=== PATIENT | female | born 1975 | race Caucasian/White ===

== ENCOUNTER 2016-05-08 23:41 | Emergency (ER) | payer MEDICAID ==
[~2016-05-08] VITALS: Ht 162.6 cm; Wt 54.4 kg
[~2016-05-08 23:41] MED LIST: ACYC400T PO; AMOX500T2 PO; BUPR-168; CARI350T PO; CARI350T27 PO; CEFP250T2 PO; CLON0.5T60 PO; CLON1TAB PO; CODE-54 PO; ESCI10TA PO; EST30C PV; FLT05NA16 NS; FLUC100T PO; HYDR-34 PO; HYDR50TA76 PO; HYOS0.1217 PO; IBUP800T26 PO; METH4TAB PO; METH500T PO; METH500T7; METH500T7 PO; MIRT15TA3 PO; ONDA-42 SL; ONDA4TAB11 PO; OXYM30SP NS; PANT20TA2 PO; PHEN-639 PO; PRM25T PO; PROM12.59 PO; QUET50TA PO; SULF1TAB35 PO; TRAM-21 PO; TRAM50TA2; TRAM50TA2 PO; ZLP10T PO
[2016-05-08] MEDS ORDERED: BUSP10TA95 (23:57)
[2016-05-08] MEDS ORDERED: TRAZ-28 (23:57)
[2016-05-09] MEDS ORDERED: IBUPROFEN 800 MG (MOTRIN) TAB PO STA (00:21)
[2016-05-09] MEDS ORDERED: HYDROcodone/APAP 7.5 MG/325 MG (LORTAB, LORCET PLUS) TABLET PO STA (00:21)
[2016-05-09] MEDS ORDERED: CYCLOBENZAPRINE 10 MG (FLEXERIL) TAB PO STA (00:21)
--- NOTE | 2016-05-09 00:37 | ED Upper Extremity ---
General Chief Complaint: Trauma-Non Activation Stated Complaint: FELL Nursing Triage Note: patient reports L shoulder/arm and L rib pain after a fall on the of this month, patient reports has been alternating tylenol and ibuprofen without relief. patient reports moving a washing machine today and reagravating injury Nursing Sepsis Screen: No Definite Risk Source: patient Exam Limitations: no limitations History of Present Illness Time seen by provider: 00:10 Initial Comments Here with complaint of left shoulder and left arm pain and left rib pain after a fall on 25 April. She complains of pain mostly between the shoulder blade and the spine on the left side with spasm that radiates up to the neck and around the chest wall. Pain exacerbated tonight by trying to move her washer with her left arm and she felt a pull that made everything worse. She has been taking iron ibuprofen and Tylenol but that hasn't helped. Onset: other (2 weeks ago initially but worse today) Severity: moderate Method of Injury: fell (initial injury) Modifying Factors: Improves With Immobilization, Worse With Movement Allergies and Home Medications Allergies Coded Allergies: morphine (Verified Allergy, Mild, 12/09/14) estradiol (Verified Allergy, Unknown, RASH, 11/02/13) fentanyl (Verified Allergy, Unknown, 12/09/14) lurasidone (Verified Allergy, Unknown, 12/09/14) Uncoded Allergies: VYBRID (Allergy, Mild, 12/09/14) Home Medications Buspirone HCl 10 Mg Tablet #90 (Reported) Trazodone HCl 50 Mg Tablet #30 (Reported) Constitutional: see HPINo chills, No fever Respiratory: no symptoms reported Cardiovascular: no symptoms reported Gastrointestinal: no symptoms reported Musculoskeletal: see HPI back pain joint pain muscle pain muscle stiffness neck pain Skin: no symptoms reported Psychiatric/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: No Symptoms Reported Past Hzjpjox-Ggrrwu-Kvzztc Hx Patient Social History Alcohol Use: Occasionally Uses Recreational Drug Use: No Smoking Status: Never a Smoker Type Used: Cigarettes Recent Foreign Travel: No Contact w/Someone Who Travel: No Recent Infectious Disease Expo: No Immunizations Up To Date Date of Pneumonia Vaccine: Oct 14, 2012 Seasonal Allergies Seasonal Allergies: No Surgeries HX Surgeries: Yes (R KNEE/R WRIST, BREAS AUGMENTATION) Surgeries: Adenoidectomy, Bladder Surgery, Hysterectomy, Tonsillectomy Respiratory Hx Respiratory Disorders: No Cardiovascular Hx Cardiac Disorders: No 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 Hx 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 Genitourinary Hx Genitourinary Disorders: No Gastrointestinal Hx Gastrointestinal Disorders: No Musculoskeletal Hx Musculoskeletal Disorders: No Endocrine Hx Endocrine Disorders: No HEENT HX ENT Disorders: No Cancer Hx Cancer: No Psychosocial Hx Psychiatric Problems: Yes Behavioral Health Disorders: Anxiety, Depression Integumentary HX Skin/Integumentary Disorder: No Blood Transfusions Hx Blood Disorders: No Adverse Reaction to a Blood Tr: No Reviewed Nursing Assessment Reviewed/Agree w Nursing PMH: Yes Family Medical History Significant Family History: No Pertinent Family Hx Physical Exam Vital Signs Vital Sign - Last 12Hours 05/08/16 23:53 Temp 98.4 Pulse 100 Resp 16 B/P 107/69 Pulse Ox 100 O2 Delivery Room Air Capillary Refill : Less Than 3 Seconds General Appearance: WD/WN no apparent distress HEENT: PERRL/EOMI pharynx normal Neck: full range of motion supple Cardiovascular: regular rate, rhythm no murmur Respiratory: lungs clear normal breath sounds Gastrointestinal: non tender soft Back: normal inspection no vertebral tenderness muscle spasm (pain and spasm to the area of the rhomboids between the shoulder blade and spine on the left side with palpable spasm.) other (pain extends from the area of the shoulder blade around the left chest wall along the trapezius muscle.) Shoulder: limited ROM pain soft tissue tenderness Elbow/Forearm: non-tender, normal ROM, Right, Left Wrist: Yes non-tender, Yes normal ROM Hand: normal ROM, Left Neurologic/Psychiatric: alert oriented x 3 Skin: normal color warm/dry Progress/Results/Core Measures Results/Orders My Orders Orders-YONATAN ANTHONY MD Cyclobenzaprine Tablet (Flexeril Tablet) (05/09/16 00:21) Hydrocodone/Apap 7.5/325 Tab (Lortab 7. (05/09/16 00:21) Ibuprofen Tablet (Motrin Tablet) (05/09/16 00:21) Chest Pa/Lat (2 View) (05/09/16 00:21) Shoulder, Left, 3 Views (05/09/16 00:21) Vital Signs/I&O Vital Sign - Last 12Hours 05/08/16 23:53 Temp 98.4 Pulse 100 Resp 16 B/P 107/69 Pulse Ox 100 O2 Delivery Room Air Blood Pressure Mean: 82 Progress Note : Progress Note Seen and evaluated. X-ray of chest and left shoulder. Hydrocodone 7.5/325 one tab by mouth, ibuprofen 800 mg when necessary cyclobenzaprine 10 mg by mouth given. Monitor patient. 0100: No acute fracture or dislocation noted and no other injury noted on chest x-ray and shoulder x-ray. Pain improved after meds. Discharged home with return precautions. Patient verbalize understanding instructions and agreement with plan. Diagnostic Imaging Diagonstic Imaging: Xray Plain Films/CT/US/NM/MRI: chest Comments No acute findings Reviewed: Reviewed by Me Diagonstic Imaging: Xray Plain Films/CT/US/NM/MRI: other (left shoulder) Comments No acute fracture or dislocation Departure Impression Impression: Primary Impression: Left shoulder pain Qualified Code: M25.512 - Pain in left shoulder Additional Impression: Muscle strain Disposition: HOME, SELF-CARE Condition: Improved Departure-Patient Inst. Decision time for Depature: 01:07 Referrals: [facility] (PCP) Primary Care Physician Patient Instructions: Muscle Strain (DC), Shoulder Pain (DC) Add. Discharge Instructions: All discharge instructions reviewed with patient and/or family. Voiced understanding. You may take ibuprofen 600 mg every 8 hours as needed for pain. You may take Tylenol 1000 mg every 8 hours as needed for pain. Take medications as prescribed. You may use lidocaine patch to areas of strain as discussed. You may get these [id number]. There are several including icy hot with lidocaine, Aspercreme with lidocaine and [place] pass lidocaine patches. Use these per package directions. Follow up with your Dr. in one to 2 days for recheck and further evaluation. If not improved early next week, you should seek follow-up with orthopedic surgeon for further evaluation of his shoulder. Scripts Cyclobenzaprine HCl 10 Mg [id number] Mg PO Q8H PRN SPASMS #15 TAB Prov:YONATAN ANTHONY MD 05/09/16 YONATAN ANTHONY MD May 09, 2016 00:37
[2016-05-09] MEDS ORDERED: CYCL10TA9 PO (01:09)
[2016-05-09 01:14] VITALS: BP 107/69
--- NOTE | 2016-05-09 07:29 | Diagnostic Imaging Report ---
INDICATION: Shoulder pain TECHNIQUE: Three views of the left shoulder. CORRELATION STUDY: None FINDINGS: The glenohumeral and acromioclavicular alignment are maintained and unremarkable. There is no evidence for acute fracture or dislocation. Visualized soft tissues are unremarkable. IMPRESSION: 1. Negative for acute bony abnormality about the shoulder. Dictated by: Dictated on workstation # [id number]
--- NOTE | 2016-05-09 07:31 | Diagnostic Imaging Report ---
INDICATION: Left shoulder pain after moving a washing machine.. TECHNIQUE: 2-view chest 12:57 AM. CORRELATION STUDY: 10/14/2014. FINDINGS: The heart size, mediastinal configuration and pulmonary vasculature are within normal limits. Mid and lower lung danielle are somewhat obscured by overlying soft tissue attenuation but appear to be generally clear. Visualized osseous structures are unremarkable. IMPRESSION: No radiographic evidence for acute abnormality of the chest. Dictated by: Dictated on workstation # [id number]
== END 2016-05-09 01:14 | disposition home or self-care (01) ==
LOC: EDUNIT# 23:41 → ER 23:46
DX: M25.512 Pain in left shoulder (principal); M62.830 Muscle spasm of back
CPT/HCPCS: 71020; 73030; 99285

== ENCOUNTER 2016-08-02 20:34 | Emergency (ER) | payer MEDICAID ==
[~2016-08-02] VITALS: Ht 162.6 cm; Wt 54.4 kg
[~2016-08-02 20:34] MED LIST changes: +BUSP10TA95; +CYCL10TA9 PO; +TRAZ-28
[2016-08-02] MEDS ORDERED: DEXAMETHASONE PF 10 MG/ML (DECADRON) VIAL IM STA (21:02)
--- NOTE | 2016-08-02 21:10 | ED Integumentary General ---
General Chief Complaint: Allergic Reaction Stated Complaint: BUG BITES ON FACE/FEVERISH Nursing Triage Note: PT TO ED 5 W/ C/O RASH TO FACE, HAIR LINE ET HANDS ONSET X2 WKS, WORSE TONIGHT. REPORTS SHE'S USED "EVERYTHING" BUT DENIES ANY IMPROVEMENT History of Present Illness Time seen by provider: 20:50 Initial Comments Patient has noted multiple insect bites to face, chest, back and extremities. She denies leaving her house much and is unsure of the insect. Her partner plans to do extermination. They have checked the mattress for bedbugs. She denies seeing any spiders. She denies any previous allergic reactions. Timing/Duration: week, getting worse Severity: moderate Location: scalp, face, torso, extremities Possible Cause: no cause identified Modifying Factors: improves with antihistamine, improves with calamine lotion, improves with other (hydrocortisone) Associated Symptoms: change in skin texture, flushing, rash Allergies and Home Medications Allergies Coded Allergies: morphine (Verified Allergy, Mild, 12/09/14) estradiol (Verified Allergy, Unknown, RASH, 11/02/13) fentanyl (Verified Allergy, Unknown, 12/09/14) lurasidone (Verified Allergy, Unknown, 12/09/14) Uncoded Allergies: VYBRID (Allergy, Mild, 12/09/14) Home Medications Buspirone HCl 10 Mg Tablet, #90 (Reported) Cephalexin 500 Mg Capsule, 500 MG PO QID, #28 Ref 0 Prescribed by: ADY TOLENTINO on 08/02/162113 Cyclobenzaprine HCl 10 Mg Tablet, 10 MG PO Q8H PRN for SPASMS, #15 Prescribed by: YONATAN ANTHONY on 05/09/16 0109 Prednisone 5 Mg Tablet, 10 MG PO Q12H, #20 Ref 0 Take 2 tablets twice a day for 2 days, then 1 tablet twice a day for 2 days, then 1 table once daily for 2 days. Prescribed by: ADY TOLENTINO on 08/02/162113 Trazodone HCl 50 Mg Tablet, #30 (Reported) Constitutional: no symptoms reported, see HPI EENTM: no symptoms reported, see HPI Respiratory: no symptoms reported, see HPI Cardiovascular: no symptoms reported, see HPI Gastrointestinal: no symptoms reported Genitourinary: no symptoms reported, see HPI Musculoskeletal: no symptoms reported, see HPI Skin: lesions, pruritus, rash Psychiatric/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: No Symptoms Reported, See HPI Endocrine: No Symptoms Reported, See HPI Hematologic/Lymphatic: No Symptoms Reported, See HPI All Other Systems Reviewed Negative Unless Noted: Yes Past Xoonxur-Ehyfgi-Ffqxhm Hx Patient Social History Alcohol Use: Denies Use Recreational Drug Use: No Smoking Status: Current Everyday Smoker Type Used: Cigarettes Recent Foreign Travel: No Contact w/Someone Who Travel: No Recent Infectious Disease Expo: No Recent Hopitalizations: No Immunizations Up To Date Date of Pneumonia Vaccine: Oct 14, 2012 Seasonal Allergies Seasonal Allergies: No Surgeries HX Surgeries: Yes (R KNEE/R WRIST, BREAS AUGMENTATION) Surgeries: Adenoidectomy, Bladder Surgery, Hysterectomy, Tonsillectomy Respiratory Hx Respiratory Disorders: No Cardiovascular Hx Cardiac Disorders: No 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 Hx 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 Disorders: 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 Genitourinary Hx Genitourinary Disorders: No Gastrointestinal Hx Gastrointestinal Disorders: No Musculoskeletal Hx Musculoskeletal Disorders: No Endocrine Hx Endocrine Disorders: No HEENT HX ENT Disorders: No Cancer Hx Cancer: No Psychosocial Hx Psychiatric Problems: Yes Behavioral Health Disorders: Anxiety, Depression Integumentary HX Skin/Integumentary Disorder: No Blood Transfusions Hx Blood Disorders: No Adverse Reaction to a Blood Tr: No Reviewed Nursing Assessment Reviewed/Agree w Nursing PMH: Yes Family Medical History Significant Family History: No Pertinent Family Hx Physical Exam Vital Signs Vital Sign - Last 12Hours 08/02/16 20:39 Temp 98.2 Pulse 88 Resp 20 B/P (MAP) 121/91 Pulse Ox 99 O2 Delivery Room Air Capillary Refill : Less Than 3 Seconds General Appearance: WD/WN, no apparent distress HEENT: PERRL/EOMI, normal ENT inspection, TMs normal, pharynx normal, other ( skin lesions noted to cheeks and hairline, various Stages of healing. No induration or fluctuance noted. Appears patient has been picking at them.) Neck: non-tender, full range of motion, normal inspection, lymphadenopathy (R) , lymphadenopathy (L) Cardiovascular: normal peripheral pulses, regular rate, rhythm, no murmur Respiratory: chest non-tender, lungs clear, normal breath sounds Gastrointestinal: normal bowel sounds, non tender, soft Back: normal inspection, no vertebral tenderness Neurologic/Psychiatric: no motor/sensory deficits, alert Skin: normal color, warm/dry, rash Skin Problem Location: face, scalp, upper extremities, torso, lower extremities Skin Problem Character: erythema, lesion, patchy, urticarial Lymphatic: No axilla node tender (R), No axilla node tender (L), No inguinal node tender (R), No inguinal node tender (L) Progress/Results/Core Measures Results/Orders My Orders Orders - ADY TOLENTINO Dexamethasone Pf Injection (Decadron Pf (08/02/16 21:02) Rx-Cephalexin Capsule (Rx-Keflex Capsule (08/02/16 21:15) Vital Signs/I&O Vital Sign - Last 12Hours 08/02/16 20:39 Temp 98.2 Pulse 88 Resp 20 B/P (MAP) 121/91 Pulse Ox 99 O2 Delivery Room Air Blood Pressure Mean: 101 Departure Impression Impression: Primary Impression: Insect bite Qualified Codes: W57.XXXA - Bitten or stung by nonvenomous insect and other nonvenomous arthropods, initial encounter Additional Impression: Allergy, insect bite Disposition: HOME, SELF-CARE Condition: Improved Departure-Patient Inst. Decision time for Depature: 21:00 Referrals: [facility] (PCP) Primary Care Physician ANNIE CARRANZA MD (Family) Primary Care Physician Patient Instructions: Insect Allergy, Insect Bites and Stings (DC), Skin Rash ( DC) Add. Discharge Instructions: Continue continue taking Benadryl 25 mg every 8 hours. Apply calamine, clear, to insect bite areas. Keep areas clean and dry. Take antibiotic as prescribed. Return to emergency department if symptoms worsen or new concerns. All discharge instructions reviewed with patient and/or family. Voiced understanding. Scripts Fluconazole (Diflucan) 150 Mg Tablet 150 MG PO Q48H, #3 TAB 0 Refills Prov: ADY TOLENTINO 08/02/16 Cephalexin (Keflex) 500 Mg Capsule 500 MG PO QID, #28 CAP 0 Refills Prov: ADY TOLENTINO 08/02/16 Prednisone (Prednisone) 5 Mg Tablet 10 MG PO Q12H, #20 TAB 0 Refills Take 2 tablets twice a day for 2 days, then 1 tablet twice a day for 2 days, then 1 table once daily for 2 days. Prov: ADY TOLENTINO 08/02/16 ADY TOLENTINO August 02, 2016 21:10
[2016-08-02] MEDS ORDERED: CEPH-507 PO (21:14)
[2016-08-02] MEDS ORDERED: PRED5TAB PO (21:14)
[2016-08-02] MEDS ORDERED: RX-CEPHALEXIN (KEFLEX) 250 MG CAP PPK#4 PO ONE (21:15)
[2016-08-02 21:19] VITALS: BP 0/0
[2016-08-02] MEDS ORDERED: FLUC150T PO (21:24)
== END 2016-08-02 21:19 | disposition home or self-care (01) ==
LOC: EDUNIT# 20:34 → ER 20:37
DX: S00.86XA Insect bite (nonvenomous) of other part of head, initial encounter (principal); S30.861A Insect bite (nonvenomous) of abdominal wall, initial encounter; S80.861A Insect bite (nonvenomous), right lower leg, initial encounter; S80.862A Insect bite (nonvenomous), left lower leg, initial encounter; S40.861A Insect bite (nonvenomous) of right upper arm, initial encounter; S40.862A Insect bite (nonvenomous) of left upper arm, initial encounter; F17.210 Nicotine dependence, cigarettes, uncomplicated; W57.XXXA Bitten or stung by nonvenomous insect and other nonvenomous arthropods, initial encounter; Y92.009 Unspecified place in unspecified non-institutional (private) residence as the place of occurrence of the external cause; Y99.8 Other external cause status
CPT/HCPCS: 96372; 99283

== ENCOUNTER 2017-04-14 23:24 | Emergency (ER) | payer MEDICAID ==
[~2017-04-14] VITALS: Ht 162.6 cm; Wt 54.4 kg
[~2017-04-14 23:24] MED LIST changes: +ALPR0.5T7 PO; +ARIP5TAB20 PO; +CEPH-507 PO; +FLUC150T PO; +NITR100C10 PO; +PRED5TAB PO
[2017-04-14] MEDS ORDERED: LACTATED RINGERS 1,000 ML IV ONE ×2 (23:27→23:30)
--- OUTSIDE RECORDS SUMMARY | 2017-04-14 23:32 | XMS REPORT ---
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 Problem Post-traumatic stress disorder, chronic F43.12 Active 58459332 Problem Personality disorder, unspecified F60.9 Active 40150871 Problem History of urinary retention Z87.898 Active 037314481 Problem Unspecified abdominal pain R10.9 Active 326375045 Problem Chronic sinusitis, unspecified J32.9 Active 85346695 Problem Bipolar disorder, current episode depressed, severe, without psychotic features F31.4 Active 357534551 Problem Generalized anxiety disorder F41.1 Active 42989958 Problem Bipolar 1 disorder F31.9 Active 515154100 Problem Neurocognitive disorder, unspecified F99 Active 854956650 Problem Anxiety disorder, unspecified F41.9 Active 366780519 Problem Major depression, chronic F32.9 Active 4345661 ALLERGIES No Information SOCIAL HISTORY Never Assessed PLAN OF CARE VITAL SIGNS MEDICATIONS Unknown Medications RESULTS No Results PROCEDURES No Known procedures IMMUNIZATIONS No Known Immunizations MEDICAL (GENERAL) HISTORY Type Description Date Medical History bipolar disorder Medical History anxiety Medical History depression Medical History seizure-unsure if psychogenic or true seizures early Surgical History bladder suspension Surgical History Removal of bladder mesh x 3 Surgical History breast augmentation Surgical History hysterectomy Surgical History tonsillectomy Hospitalization History MRSA 2003 Hospitalization History Irina 03/19/2015 Hospitalization History inpatient -[place], 2 weeks 2015 Hospitalization History seizure like activity, possible inpatient as well early
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
[2017-04-14 23:53] LABS: BASOPHILS # (AUTO) 0.1 10^3/uL (0.0-0.1); BASOPHILS % (AUTO) 1 % (0-10); EOSINOPHILS # (AUTO) 0.2 10^3/uL (0.0-0.3); EOSINOPHILS % (AUTO) 2 % (0-10); HEMATOCRIT 41 % (35-52); HEMOGLOBIN 13.8 G/DL (11.5-16.0); LYMPHOCYTES # (AUTO) 2.5 X 10^3 (1.0-4.0); LYMPHOCYTES % (AUTO) 25 % (12-44); MEAN CORPUSCULAR HEMOGLOBIN 30 PG (25-34); MEAN CORPUSCULAR HGB CONC 34 G/DL (32-36); MEAN CORPUSCULAR VOLUME 88 FL (80-99); MEAN PLATELET VOLUME 9.1 FL (7.4-10.4); MONOCYTES # (AUTO) 0.8 X 10^3 (0.0-1.0); MONOCYTES % (AUTO) 8 % (0-12); NEUTROPHILS # (AUTO) 6.5 X 10^3 (1.8-7.8); NEUTROPHILS % (AUTO) 65 % (42-75); PLATELET COUNT 303 10^3/uL (130-400); RED BLOOD COUNT 4.65 10^6/uL (4.35-5.85); RED CELL DISTRIBUTION WIDTH 13.1 % (10.0-14.5)
[2017-04-14 23:59] LABS: AMPHETAMINE SCREEN, URINE POSITIVE (NEGATIVE); BARBITURATE SCREEN URINE NEGATIVE (NEGATIVE); BENZODIAZEPINES SCREEN URINE NEGATIVE (NEGATIVE); CANNABINOID SCREEN, URINE NEGATIVE (NEGATIVE); COCAINE SCREEN URINE NEGATIVE (NEGATIVE); METHADONE STAT NEGATIVE (NEGATIVE); METHAMPHETAMINE SCREEN URINE S POSITIVE (NEGATIVE); OPIATE SCREEN URINE NEGATIVE (NEGATIVE); OXYCODONE STAT NEGATIVE (NEGATIVE); PROPOXYPHENE STAT NEGATIVE (NEGATIVE); TRICYCLIC ANTIDEPRESSANTS SCRE NEGATIVE (NEGATIVE)
[2017-04-15 00:08] LABS: BACTERIA,URINE NEGATIVE /HPF; BILIRUBIN,URINE NEGATIVE (NEGATIVE); CLARITY,URINE CLEAR; COLOR,URINE YELLOW; GLUCOSE, URINE (UA) NEGATIVE (NEGATIVE); KETONES,URINE NEGATIVE (NEGATIVE); LEUKOCYTE ESTERASE ,URINE NEGATIVE (NEGATIVE); NITRITE,URINE NEGATIVE (NEGATIVE); PH,URINE 7 (5-9); PROTEIN,URINE NEGATIVE (NEGATIVE); UROBILINOGEN,URINE NORMAL (NORMAL)
[2017-04-15 00:13] LABS: ALANINE AMINOTRANSFERASE 19 U/L (0-55); ALBUMIN 3.9 GM/DL (3.2-4.5); ALKALINE PHOSPHATASE 76 U/L (40-136); BILIRUBIN,TOTAL 0.5 MG/DL (0.1-1.0); BUN/CREATININE RATIO 17; CALCIUM 9.2 MG/DL (8.5-10.1); CARBON DIOXIDE 25 MMOL/L (21-32); CHLORIDE 103 MMOL/L (98-107); CREATININE SERUM 0.65 MG/DL (0.60-1.30); GFR ESTIMATED > 60; GLUCOSE 103 MG/DL (70-105); POTASSIUM 3.9 MMOL/L (3.6-5.0); SALICYLATE < 5.0 MG/DL (5.0-20.0); SODIUM 137 MMOL/L (135-145); TOTAL PROTEIN 6.9 GM/DL (6.4-8.2)
[2017-04-15 00:16] LABS: ACETAMINOPHEN < 10 UG/ML (10-30)
[2017-04-15 00:33] LABS: TSH (THYROID ANALYZER) 0.49 UIU/ML (0.35-4.94)
--- NOTE | 2017-04-15 00:33 | ED Psychosocial ---
General Chief Complaint: Psych/Social Disorder Stated Complaint: DETOX Nursing Triage Note: anxiety, possible detox. Source: patient (VERY LIMITED HISTORIAN--UNABLE TO ANSWER MANY QUESTIONS, GIVES MANY INCONSISTENT ANSWERS, ETC. APPEARS TO BE UNDER THE INFLEUNCE OF SOME SUBSTANCE/S), EMS, old records (ALL PMH IS FROM OLD RECORDS), other ( PARENTS ARRIVE LATER AND ARE ABLE TO PROVIDE ADDITIONAL INFORMATION) History of Present Illness Date Seen by Provider: Apr 14, 2017 Time Seen by Provider: 23:25 Initial Comments PT ARRIVES VIA EMS FROM PARENT[facility]S HOUSE PARENTS ARRIVE LATER AND REPORT THAT PT HAS BEEN THERE SINCE LAST PM ON ARRIVAL TO ER, EMS STATE THAT POLICE CALLED THEM FROM THE RESIDENCE, AND ADVISED TO BRING PT HERE FOR "DETOX" PT IS UNABLE TO PROVIDE ANY RELEVANT INFORMATION PT IS UNABLE TO STATE IF SHE IS HOMELESS OR NOT PT STATES "I GOT SCARED OVER AT MY MOM'S, THEN I GOT FREAKED OUT" BUT PT UNABLE TO ELABORATE AT ALL PT STATES "I DIDN'T KNOW IF I SHOULD BE THERE OR NOT" APPARENTLY PT'S MOM CALLED POLICE/EMS--PT STATES SHE DOES NOT KNOW WHY HER MOM CALLED THEM PT TALKS "BABY TALK" AT TIMES--STATES "I WAS BEING REALLY GOOD" "MOM SAID I COULD GO TO A [facility]OM[facility]S ASSIST[facility] IF I WAS REALLY GOOD" --AGAIN PT IS UNABLE TO ELABORATE ON WHY SHE WOULD NEED TO GO TO A [facility]. PT STATES SHE DOES NOT KNOW WHY SHE IS HERE AND HAS NO COMPLAINTS. PARENTS ARRIVE LATER, AND STATE THAT PT HAS AN APPOINTMENT AT 0900 TOMORROW MORNING TO BE ADMITTED TO AN INPATIENT DRUG REHAB FACILITY IN [place], [place] [facility]. THEY STATE THEY JUST WANT SOMETHING TO KEEP PT CALM UNTIL THEY CAN GET HER THERE TOMORROW MORNING. PT HAS HAD SEVERAL VISITS HERE FOR SUBSTANCE ABUSE RELATED ISSUES--SEE NOTE FORM 01/19/17 PCP: [facility] Allergies and Home Medications Allergies Coded Allergies: morphine (Verified Allergy, Mild, 12/09/14) estradiol (Verified Allergy, Unknown, RASH, 11/02/13) fentanyl (Verified Allergy, Unknown, 12/09/14) lurasidone (Verified Allergy, Unknown, 12/09/14) No Allergy Information Available (Unverified , 01/19/17) Uncoded Allergies: VYBRID (Allergy, Mild, 12/09/14) Home Medications Nitrofurantoin Monohyd/M-Cryst 100 Mg Capsule, 100 MG PO BID for 7 Days, #14 Prescribed by: MIRNA LEVINE on 01/21/17 1230 Constitutional: no symptoms reported Respiratory: no symptoms reported Cardiovascular: no symptoms reported Gastrointestinal: no symptoms reported Genitourinary: no symptoms reported Musculoskeletal: no symptoms reported Skin: no symptoms reported Psychiatric/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: See HPI Past Huftjir-Kliern-Ktahpx Hx Patient Social History Alcohol Use: Denies Use Recreational Drug Use: Yes (UDS + FOR AMPHETAMINES/METHAMPHETAMINES, OPIATES, COCAINE, BENZODIAZEPINES ON 01/19/17) Drug of Choice: AMPHETAMINES/METHAMPHETAMINES,OPIATES,COCAINE,BENZODIAZEPINES ON UDS 01/19/ Smoking Status: Current Everyday Smoker Type Used: Cigarettes (1/2 PPD) Recent Foreign Travel: No Contact w/Someone Who Travel: No Recent Infectious Disease Expo: No Recent Hopitalizations: No Immunizations Up To Date Date of Pneumonia Vaccine: Oct 14, 2012 Seasonal Allergies Seasonal Allergies: No Surgeries History of Surgeries: Yes (BREAST AUGMENTATION, 3 VAGINAL BLADDER/MESH REVISIONS; RIGHT WRIST; RIGHT KNEE; HYST/OVARIES INTACT; EGD/COLONOSCOPY) Surgeries: Adenoidectomy, Bladder Surgery, Breast, Hysterectomy, Orthopedic, Tonsillectomy Respiratory History of Respiratory Disorde: No Cardiovascular History of Cardiac Disorders: No 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 History of 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 Disord: No Reproductive System : No Hx Reproductive Disorders: Yes (CHRONIC PELVIC AND VAGINAL PAIN FROM "MESH") Sexually Transmitted Disease: No 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 Genitourinary History of Genitourinary Disor: Yes Genitourinary Disorders: Bladder Infection, UTI-Chronic Gastrointestinal History of Gastrointestinal Di: No Musculoskeletal History of Musculoskeletal Dis: No Endocrine History of Endocrine Disorders: No HEENT History of HEENT Disorders: Yes (PARTIAL/BRIDGE) Cancer History of Cancer: No Psychosocial History of Psychiatric Problem: Yes (POLYSUBSTANCE ABUSE) Behavioral Health Disorders: Anxiety, Depression Integumentary History of Skin or Integumenta: No Blood Transfusions History of Blood Disorders: No Adverse Reaction to a Blood Tr: No Family Medical History Significant Family History: No Pertinent Family Hx Physical Exam Vital Signs Vital Sign - Last 12Hours 04/14/17 23:37 Temp 98.2 Pulse 103 Resp 18 B/P (MAP) 132/99 (110) Pulse Ox 99 O2 Delivery Room Air Capillary Refill : Less Than 3 Seconds General Appearance: no apparent distress, thin, other (SPEECH NON-SENSICAL AT TIMES, AND MUMBLES AT TIMES. APPEARS TO BE UNDER THE INFLUENCE OF SOME SUBSTANCE /S VERY BIZARRE AFFECT. ON ARRIVAL PT IS BEING WHEELED IN ON EMS CART, PT WITH EYES CLOSED AND HOLDING RIGHT ARM STRAIGHT OUT IN FRONT OF HER FOR NO APPARENT REASON. .PT DOES AMBULATE TO AND FROM BATHROOM ON HER OWN WITHOUT DIFFICULTY. 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 UNABLE TO DETERMINE ORIENTATION DUE TO OBVIOUSLY UNDER THE INFLUENCE OF SUBSTANCES) Behavior/Eye Contact: cooperative, avoids eye contact (KEEPS EYES CLOSED), increased rate of speech (AND MUMBLES, SPEECH NON-SENSICAL AT TIMES) Thoughts/Hallucinations: no apparent hallucination, flight of ideas, incoherent Skin: normal color, warm/dry, other (MULTIPLE SORES/SCABS/SCARS TO FACE, NECK, UPPER CHEST, AND FEW ON FOREARMS. ) Progress/Results/Core Measures Results/Orders Lab Results Laboratory Tests Test 04/14/17 23:30 04/14/17 23:40 Range/Units Urine Color YELLOW Urine Clarity CLEAR Urine pH 7 5-9 Urine Specific [place] 1.010 L 1.016-1.022 Urine Protein NEGATIVE NEGATIVE Urine Glucose (UA) NEGATIVE NEGATIVE Urine Ketones NEGATIVE NEGATIVE Urine Nitrite NEGATIVE NEGATIVE Urine Bilirubin NEGATIVE NEGATIVE Urine Urobilinogen NORMAL NORMAL MG/DL Urine Leukocyte Esterase NEGATIVE NEGATIVE Urine RBC (Auto) NEGATIVE NEGATIVE Urine RBC NONE /HPF Urine WBC NONE /HPF Urine Squamous Epithelial Cells 2-5 /HPF Urine Crystals NONE /LPF Urine Bacteria NEGATIVE /HPF Urine Casts NONE /LPF Urine Mucus NEGATIVE /LPF Urine Culture Indicated NO Urine Opiates Screen NEGATIVE NEGATIVE Urine Oxycodone Screen NEGATIVE NEGATIVE Urine Methadone Screen NEGATIVE NEGATIVE Urine Propoxyphene Screen NEGATIVE NEGATIVE Urine Barbiturates Screen NEGATIVE NEGATIVE Ur Tricyclic Antidepressants Screen NEGATIVE NEGATIVE Urine Phencyclidine Screen NEGATIVE NEGATIVE Urine Amphetamines Screen POSITIVE H NEGATIVE Urine Methamphetamines Screen POSITIVE H NEGATIVE Urine Benzodiazepines Screen NEGATIVE NEGATIVE Urine Cocaine Screen NEGATIVE NEGATIVE Urine Cannabinoids Screen NEGATIVE NEGATIVE White Blood Count 10.0 4.3-11.0 10^3/uL Red Blood Count 4.65 4.35-5.85 10^6/uL Hemoglobin 13.8 11.5-16.0 G/DL Hematocrit 41 35-52 % Mean Corpuscular Volume 88 80-99 FL Mean Corpuscular Hemoglobin 30 25-34 PG Mean Corpuscular Hemoglobin Concent 34 32-36 G/DL Red Cell Distribution Width 13.1 10.0-14.5 % Platelet Count 303 130-400 10^3/uL Mean Platelet Volume 9.1 7.4-10.4 FL Neutrophils (%) (Auto) 65 42-75 % Lymphocytes (%) (Auto) 25 12-44 % Monocytes (%) (Auto) 8 0-12 % Eosinophils (%) (Auto) 2 0-10 % Basophils (%) (Auto) 1 0-10 % Neutrophils # (Auto) 6.5 1.8-7.8 X 10^3 Lymphocytes # (Auto) 2.5 1.0-4.0 X 10^3 Monocytes # (Auto) 0.8 0.0-1.0 X 10^3 Eosinophils # (Auto) 0.2 0.0-0.3 10^3/uL Basophils # (Auto) 0.1 0.0-0.1 10^3/uL Sodium Level 137 135-145 MMOL/L Potassium Level 3.9 3.6-5.0 MMOL/L Chloride Level 103 98-107 MMOL/L Carbon Dioxide Level 25 21-32 MMOL/L Anion Gap 9 5-14 MMOL/L Blood Urea Nitrogen 11 7-18 MG/DL Creatinine 0.65 0.60-1.30 MG/DL Estimat Glomerular Filtration Rate > 60 BUN/Creatinine Ratio 17 Glucose Level 103 70-105 MG/DL Calcium Level 9.2 8.5-10.1 MG/DL Total Bilirubin 0.5 0.1-1.0 MG/DL Aspartate Amino Transf (AST/SGOT) 21 5-34 U/L Alanine Aminotransferase (ALT/SGPT) 19 0-55 U/L Alkaline Phosphatase 76 40-136 U/L Total Protein 6.9 6.4-8.2 GM/DL Albumin 3.9 3.2-4.5 GM/DL TSH [place] Testing 0.49 0.35-4.94 UIU/ML Serum Test, Qualitative NEGATIVE NEGATIVE Salicylates Level < 5.0 L 5.0-20.0 MG/DL Acetaminophen Level < 10 L 10-30 UG/ML Serum Alcohol < 10 <10 MG/DL My Orders Orders - ANGELA PEREZ Aneudy DO Ua Culture If Indicated (04/14/17 23:27) Thyroid Analyzer (04/14/17 23:27) Drug Screen Stat (Urine) (04/14/17 23:27) Cbc With Automated Diff (04/14/17 23:27) Comprehensive Metabolic Panel (04/14/17 23:27) Alcohol (04/14/17 23:27) Acetaminophen (04/14/17 23:27) Salicylate (04/14/17 23:27) Ekg Tracing (04/14/17 23:27) Monitor-Rhythm Ecg Trace Only (04/14/17 23:27) Hcg,Qualitative Serum (04/14/17 23:27) Lactated Ringers (Lr 1000 Ml Iv Solution (04/14/17 23:27) Lactated Ringers (Lr 1000 Ml Iv Solution (04/14/17 23:30) Hydroxyzine Oral (Vistaril Capsule) (04/15/17 00:45) Hydroxyzine Oral (Vistaril Capsule) (04/15/17 00:36) Medications Given in ED Vital Signs/I&O Blood Pressure Mean: 110 Progress Note : Progress Note NO DETERIORATION IN PT'S CONDITION DURING ER STAY PARENTS COMFORTABLE TAKING PT HOME AND WILL TAKE HER TO REHAB FACILITY IN [place] TOMORROW MORNING SCHEDULED ECG Initial ECG Impression Date: Apr 14, 2017 Initial ECG Impression Time: 23:37 Initial ECG Rate: 88 Initial ECG Rhythm: Normal Sinus Initial ECG Comparisson: Unchanged Departure Impression Impression: Primary Impression: Illicit drug use Additional Impression: Methamphetamine abuse Disposition: 01 HOME, SELF-CARE Condition: Stable Departure-Patient Inst. Referrals: [facility] (PCP) Primary Care Physician ANNIE CARRANZA MD (Family) Primary Care Physician Patient Instructions: ALCOHOL AND SUBSTANCE ABUSE, Drug Abuse Treatment, Drug Abuse and Drug Addiction (DC), Methamphetamine Add. Discharge Instructions: KEEP APPOINTMENT TOMORROW MORNING FOR REHAB MAY TAKE BENADRYL 50 MG EVERY 4-6 HOURS NEEDED FOR ANXIETY FOLLOW UP WITH [facility] NEEDED All discharge instructions reviewed with patient and/or family. Voiced understanding. ANGELA PEREZ DO Apr 15, 2017 00:33
[2017-04-15] MEDS ORDERED: hydrOXYzine (VISTARIL) 25 MG CAP ONE (00:36)
[2017-04-15 00:45] VITALS: BP 131/94
[2017-04-15] MEDS ORDERED: hydrOXYzine (VISTARIL) 25 MG CAP PO ONE (00:45)
== END 2017-04-15 00:50 | disposition home or self-care (01) ==
LOC: EDUNIT# 23:24 → ER 23:25
DX: F15.10 Other stimulant abuse, uncomplicated (principal); F12.10 Cannabis abuse, uncomplicated; F14.10 Cocaine abuse, uncomplicated; F41.9 Anxiety disorder, unspecified; F32.9 Major depressive disorder, single episode, unspecified; F17.210 Nicotine dependence, cigarettes, uncomplicated; Z90.710 Acquired absence of both cervix and uterus; Z90.89 Acquired absence of other organs; Z87.440 Personal history of urinary (tract) infections; Z87.448 Personal history of other diseases of urinary system
CPT/HCPCS: 36415; 80053; 80306; 80320; 80329; 81000; 84443; 84703; 85025; 93005; 93041